=== PATIENT | female | born 1950 | race Caucasian/White ===

== ENCOUNTER 2020-06-10 14:42 | Emergency (ER) | payer MEDICARE ==
[~2020-06-10] VITALS: Ht 167.6 cm; Wt 90.7 kg
[2020-06-10] MEDS ORDERED: KETOROLAC TROMETHAMINE 30 MG/ML VIAL IV STA (15:08)
[2020-06-10] MEDS ORDERED: ONDANSETRON HCL INJ 2MG/ML 2ML 2 MG/ML VIAL IV STA (15:08)
--- NOTE | 2020-06-10 15:13 | Emergency Department Note ---
History of Present Illnes History of Present Illness Chief Complaint: Abdominal Complaints History of Present Illness This is a 69 year old female that was recently seen at outside hospital 2 days ago for gallbladder stones. Patient was given Tylenol 3 for pain and Zofran for nausea. Patient did have a potato with water for dinner and pain began today. Patient did have 2 episodes of emesis. . Historian: Patient, Family Member Arrival Mode: Car Onset (how long ago): day(s) (3) Location: RUQ Quality: pain, ache Radiation: Reports back Severity: moderate Duration (how long): day(s) Progression: worsening Context: Reports other (recently diagnosed with gall stones, had tator cassarole for dinner) Relieving factors: none Exacerbating factors: eating Associated symptoms: Reports loss of appetite, Reports nausea/vomiting; Denies cough Past Medical/Family History Physician Review I have reviewed the patient's past medical and family history. Any updates have been documented here. Past Medical History Recent Fever: No Clinical Suspicion of Infectio: No New/Unexplained Change in Ment: No Past Medical History: Hypertension, GERD, Hyperlipedemia, Osteoarthritis Past Surgical History: Knee Replacement Other Surgery: BREAST SURGERY LEFT KNEE REPLACEMENT Social History Physically hurt or threatened: No Review of Systems Review of Systems Constitutional: Reports no symptoms EENTM: Reports no symptoms Cardiovascular: Reports no symptoms Respiratory: Reports no symptoms Gastrointestinal: Reports as per HPI Genitourinary: Reports no symptoms Musculoskeletal: Reports no symptoms Integumentary: Reports no symptoms Neurological: Reports no symptoms Psychological: Reports no symptoms Endocrine: Reports no symptoms Hematological/Lymphatic: Reports no symptoms Physical Exam Related Data Allergies: Coded Allergies: No Known Allergies (Unverified , 06/10/20) Triage Vital Signs Vital Signs Date Time Temp Pulse Resp B/P (MAP) Pulse Ox O2 Delivery O2 Flow Rate FiO2 06/10/20 14:42 97.9 92 18 129/85 100 Room Air Physical Exam CONSTITUTIONAL Constitutional: Present well-developed, Present well-nourished HENT HENT: Present normocephalic, Present atraumatic, Present oropharynx clear/moist, Present nose normal HENT L/R: Present left ext ear normal, Present right ext ear normal EYES Eyes: Reports PERRL, Reports conjunctivae normal NECK Neck: Present ROM normal PULMONARY Pulmonary: Present effort normal, Present breath sounds normal CARDIOVASCULAR Cardiovascular: Present regular rhythm, Present heart sounds normal, Present capillary refill normal, Present normal rate GASTROINTESTINAL Abdominal: Present soft, Present bowel sounds normal, Present tender (TTP RUQ, no peritoneal signs ) GENITOURINARY Genitourinary: Present exam deferred SKIN Skin: Present warm, Present dry MUSCULOSKELETAL Musculoskeletal: Present ROM normal NEUROLOGICAL Neurological: Present alert, Present oriented x 3, Present no gross motor or sensory deficits PSYCHOLOGICAL Psychological: Present mood/affect normal, Present judgement normal Results Laboratory Laboratory Laboratory Tests Test 06/10/20 15:46 White Blood Count 7.44 x10e3/uL (4.8-10.8) Red Blood Count 3.70 x10e6/uL (3.6-5.1) Hemoglobin 12.7 g/dL (12.0-16.0) Hematocrit 37.8 % (34.2-44.1) Mean Corpuscular Volume 102.2 fL (81-99) Mean Corpuscular Hemoglobin 34.3 pg (28-32) Mean Corpuscular Hemoglobin Concent 33.6 g/dL (31-35) Red Cell Distribution Width 13.4 % (11.7-14.4) Platelet Count 334 x10e3/uL (140-360) Neutrophils (%) (Auto) 48.7 % (38.7-80.0) Lymphocytes (%) (Auto) 39.5 % (18.0-39.1) Monocytes (%) (Auto) 8.5 % (4.4-11.3) Eosinophils (%) (Auto) 2.7 % (0.0-6.0) Basophils (%) (Auto) 0.5 % (0.0-1.0) Neutrophils # (Auto) 3.6 (2.1-6.9) Lymphocytes # (Auto) 2.9 (1.0-3.2) Monocytes # (Auto) 0.6 (0.2-0.8) Eosinophils # (Auto) 0.2 (0.0-0.4) Basophils # (Auto) 0.0 (0.0-0.1) Absolute Immature Granulocyte (auto 0.01 x10e3/uL (0-0.1) Sodium Level 140 mmol/L (136-145) Potassium Level 3.9 mmol/L (3.5-5.1) Chloride Level 103 mmol/L (98-107) Carbon Dioxide Level 21 mmol/L (22-29) Anion Gap 19.9 mmol/L (8-16) Blood Urea Nitrogen 16 mg/dL (7-26) Creatinine 0.91 mg/dL (0.57-1.11) Estimat Glomerular Filtration Rate > 60 ML/MIN (60-) BUN/Creatinine Ratio 18 (6-25) Glucose Level 99 mg/dL (74-118) Calcium Level 9.6 mg/dL (8.4-10.2) Total Bilirubin 0.7 mg/dL (0.2-1.2) Aspartate Amino Transf (AST/SGOT) 20 IU/L (5-34) Alanine Aminotransferase (ALT/SGPT) 20 IU/L (0-55) Alkaline Phosphatase 77 IU/L (40-150) Total Protein 7.4 g/dL (6.5-8.1) Albumin 4.5 g/dL (3.5-5.0) Globulin 2.9 g/dL (2.3-3.5) Albumin/Globulin Ratio 1.6 (0.8-2.0) Lipase 9 U/L (8-78) Lab results reviewed: Yes Imaging Imaging results reviewed: Yes Assessment & Plan Medical Decision Making MDM Patient is known gallbladder stone issue, we'll make sure that it is not infected today. We'll get her pain under control. Patient was advised of diet that she needs to follow. The concern for ACS, no exertional component. No fever no concern for a ascending cholangitis. Patient otherwise looks well other than pain RUQ quadrant. Patient will need to follow-up with surgery. Patient on reassessment at 6 PM, pain completely under control, patient understands dietary restrictions, will follow up with surgery. No concern for cholecystitis at this time. No concern for obstruction given her normal lab work. Reassessment Reassessment EKG shows an interpreted by me as normal sinus rhythm, left axis deviation, normal intervals, no acute ST changes. No STEMI. Assessment & Plan Final Impression: (1) Cholelithiasis Depart Disposition: HOME, SELF-CARE Last Vital Signs Date Time Temp Pulse Resp B/P (MAP) Pulse Ox O2 Delivery O2 Flow Rate FiO2 06/10/20 14:42 97.9 92 18 129/85 100 Room Air CARMEL KULKARNI MD Jun 10, 2020 15:13
[2020-06-10] MEDS ORDERED: MORPHINE SULFATE 2 MG/ML SYR 1ML IV ONE (15:30)
[2020-06-10 16:19] LABS: BASOPHILS % 0.5 % (0.0-1.0); EOSINOPHILS # (AUTO) 0.2 (0.0-0.4); EOSINOPHILS % 2.7 % (0.0-6.0); HEMATOCRIT 37.8 % (34.2-44.1); HEMOGLOBIN 12.7 g/dL (12.0-16.0); LYMPHOCYTES # (AUTO) 2.9 (1.0-3.2); LYMPHOCYTES % 39.5 % (18.0-39.1); MEAN CORPUSCULAR HEMOGLOBIN 34.3 pg (28-32); MEAN CORPUSCULAR HGB CONC 33.6 g/dL (31-35); MEAN CORPUSCULAR VOLUME 102.2 fL (81-99); MONOCYTES # (AUTO) 0.6 (0.2-0.8); MONOCYTES % 8.5 % (4.4-11.3); NEUTROPHILS # (AUTO) 3.6 (2.1-6.9); NEUTROPHILS % 48.7 % (38.7-80.0); PLATELET COUNT 334 x10e3/uL (140-360); RED CELL DISTRIBUTION WIDTH 13.4 % (11.7-14.4)
[2020-06-10 16:39] LABS: ALANINE AMINOTRANSFERASE 20 IU/L (0-55); ALBUMIN 4.5 g/dL (3.5-5.0); ALBUMIN/GLOBULIN RATIO 1.6 (0.8-2.0); ALKALINE PHOSPHATASE 77 IU/L (40-150); ANION GAP 19.9 mmol/L (8-16); BLOOD UREA NITROGEN 16 mg/dL (7-26); BUN/CREATININE RATIO 18 (6-25); CALCIUM 9.6 mg/dL (8.4-10.2); CARBON DIOXIDE 21 mmol/L (22-29); CHLORIDE 103 mmol/L (98-107); CREATININE, SERUM 0.91 mg/dL (0.57-1.11); EST GLOMERULAR FILTRATION RATE > 60 ML/MIN (60-); GLUCOSE 99 mg/dL (74-118); POTASSIUM 3.9 mmol/L (3.5-5.1); SODIUM 140 mmol/L (136-145)
--- NOTE | 2020-06-10 17:50 | Diagnostic Imaging Report ---
EXAM: Right Upper Quadrant Ultrasound with Doppler INDICATION: Right upper quadrant abdominal pain COMPARISON: None. TECHNIQUE: Transverse and longitudinal images of the right upper abdomen were obtained. Grayscale, color Doppler and spectral waveform analysis of the hepatic vasculature and splenic vein were performed. FINDINGS: Liver: Size: 13 cm in the right midclavicular line, normal Appearance: Normal echogenicity, smooth contour Mass: No focal masses Gallbladder: Stones/Sludge: There are multiple stones in the gallbladder. Wall: 0.3 cm Appearance: No pericholecystic fluid or hydrops. Sonographic Cristina's Sign: Negative Bile Ducts: Intrahepatic Ducts: No dilatation Extrahepatic Ducts: Common bile duct measures 1.0 cm, no dilatation Pancreas: Visualized portions of the pancreatic head, neck and proximal body are normal. Right Kidney: Size: 10 x 4.1 x 5.3 cm Echogenicity: Normal Parenchymal thickness: Normal Collecting system: No hydronephrosis Stones: None Cyst/Mass: None Vessels: Main Portal Vein: Diameter: 0.9 cm, normal. Normal flow direction. Aorta: Visualized portions are normal Inferior Vena Cava: Visualized portions are normal Free Fluid: No ascites or pleural effusion IMPRESSION: 1. Cholelithiasis without sonographic evidence of acute cholecystitis. 2. The common bile duct is dilated, however, no evidence of choledocholithiasis sonographically. Recommend further evaluation of this finding with ERCP or MRCP. 3. LV hyper to kid LV hypo to spleen Bender hyper to LV Liver Male < 16 cm Female < 15 cm Kidneys: NL 9-12 cm, <13 cm Spleen < 12 cm CBD < 7 mm CHD < 4-5 mm GB Wall < 3 mm Hydrops > 10 x 5 cm PV < 13 mm Panc. duct 3-2-1 Signed by: Caleb Santiago MD on 06/10/2020 5:47 PM
[2020-06-14] MEDS ORDERED: MONTELUKAST SOD10 MG PO (09:45)
[2020-06-14] MEDS ORDERED: OMEPRAZOLE40 MG PO (09:46)
[2020-06-14] MEDS ORDERED: CYCLOBENZAPRINE10 MG PO (09:48)
[2020-06-14] MEDS ORDERED: FLUTICASONE P15.8 ML (09:48)
[2020-06-14] MEDS ORDERED: DIOVAN80 MG PO (09:48)
[2020-06-14] MEDS ORDERED: MELOXICAM7.5 MG PO (09:49)
[2020-06-14] MEDS ORDERED: ATORVASTATIN CA20 MG PO (09:49)
[2020-06-14] MEDS ORDERED: FAMOTIDINE20 MG PO (09:50)
[2020-06-14] MEDS ORDERED: DICYCLOMINE HCL20 MG PO (09:50)
[2020-06-14] MEDS ORDERED: ZOFRAN8 MG PO (09:52)
[2020-06-14] MEDS ORDERED: TYLENOL # 31 EA PO (09:54)
== END 2020-06-10 18:45 | disposition home or self-care (01) ==
LOC: ER 15:45
DX: R10.11 Right upper quadrant pain (principal); K80.20 Calculus of gallbladder without cholecystitis without obstruction; R11.2 Nausea with vomiting, unspecified; I11.0 Hypertensive heart disease with heart failure; E78.5 Hyperlipidemia, unspecified; K21.9 Gastro-esophageal reflux disease without esophagitis; Z96.652 Presence of left artificial knee joint
CPT/HCPCS: 36415; 76705; 80053; 83690; 85025; 93005; 99284; J1885; J2270; J2405

== ENCOUNTER → 2020-06-15 | Day surgery (SDC) | payer MEDICARE, OTHER ==
--- NOTE | 2020-06-14 10:45 | Diagnostic Imaging Report ---
EXAMINATION: CHEST 2 VIEWS INDICATION: Pre-operative COMPARISON: None FINDINGS: LINES/TUBES:None LUNGS:The lungs are well-inflated. No focal consolidation or pulmonary edema. PLEURA:No pleural effusion or pneumothorax. MEDIASTINUM:The cardiomediastinal silhouette appears normal in size and shape. BONES/SOFT TISSUES:No acute osseous injury. ABDOMEN:No free air under the diaphragm. IMPRESSION: No focal pneumonia or pulmonary edema. Signed by: Alex Feliz MD on 06/14/2020 10:42 AM
[~2020-06-15] MED LIST: ACETAMINOPHEN 1000 MG/100 ML 100 ML IV ONE; ACETAMINOPHEN/CODEINE 300MG - 30MG TAB ONE; ATORVASTATIN CA20 MG PO; BUPIVACAINE 0.5%/EPI 30 ML SDV INJ ONE; CEFOXITIN SOD 1 GM VIAL ONE; CYCLOBENZAPRINE10 MG PO; DEXAMETHASONE SOD PHOS INJ 4 MG/ML VIAL ONE; DICYCLOMINE HCL20 MG PO; DIOVAN80 MG PO; EPHEDRINE SULFATE INJ 50 MG/ML VIAL ONE; FAMOTIDINE20 MG PO; FENTANYL CITRATE/PF 100MCG/2 ML INJ ONE; FLUTICASONE P15.8 ML; GLYCOPYRROLATE INJ 0.2 MG/ML VIAL ONE; KETOROLAC TROMETHAMINE 30 MG/ML VIAL ONE; LIDOCAINE HCL 2% LOCAL INJ 5 ML SDV VIAL INJ ONE; MELOXICAM7.5 MG PO; METOCLOPRAMIDE HCL 10 MG/2ML VIAL ONE; MONTELUKAST SOD10 MG PO; NEOSTIGMINE 1 MG/ML 10ML VIAL ONE; OMEPRAZOLE40 MG PO; ONDANSETRON HCL INJ 2MG/ML 2ML 2 MG/ML VIAL ONE; PROPOFOL IV EMULSION 10 MG/ML 20 ML VIAL ONE; ROCURONIUM BROMIDE 10 MG/ML 5ML VIAL IV ONE; SEVOFLURANE INHAL SOLN 250 ML PEN BTL ONE; TYLENOL # 31 EA PO; ZOFRAN8 MG PO
[2020-06-15 12:15] VITALS: BP 130/78
--- NOTE | 2020-06-15 13:10 | Operative Report ---
DATE OF PROCEDURE: 06/15/2020 SURGEON: Stan Villalobos MD PREOPERATIVE DIAGNOSES: Right upper quadrant pain and cholecystitis secondary to gallstone. POSTOPERATIVE DIAGNOSES: Right upper quadrant pain and cholecystitis secondary to gallstone. PROCEDURE PERFORMED: Laparoscopic cholecystectomy. CHEF MANAGER: TORSTEN Roberts. ESTIMATED BLOOD LOSS: Minimal. DRAINS: None. COMPLICATIONS: None. INDICATION AND FINDINGS: This is a 69-year-old female, who was seen in the emergency room 3 times during the last 4 days, complaining of abdominal pain, right upper quadrant, nausea, inability to eat well. At that time, discharged home because there was no evidence of acute cholecystitis both on ultrasound and laboratory data. She was referred to us by [facility] Emergency Room. The patient's ultrasound had revealed gallstone. There was normal ductal anatomy. There was no evidence of cholecystitis or gallbladder wall thickening. Her liver chemistries and white count were normal. INTRAOPERATIVE FINDINGS: The patient had chronic cholecystitis with adhesions of the omentum in the right upper quadrant and to the gallbladder. After lysis of all those adhesions, we identified the gallbladder and the hepatoduodenal ligament, and we were able to complete the procedure laparoscopically after identification of the triangle of safety. There were multiple large stones. There was no ductal dilatation. DESCRIPTION OF PROCEDURE: With the patient lying on the operative table in the supine position and after administration of general anesthesia, she was prepped and draped for laparoscopic cholecystectomy. We attempted to create a pneumoperitoneum in the right upper quadrant, but we were not able to because of we did not perform the saline drop test satisfactorily and we were getting high pressure. At that point, we decided to proceed with a pneumoperitoneum insufflation in the umbilical site using again the saline drop test. The initial attempt was made in the right upper quadrant because she had a previous tubal ligation through a suprapubic incision. We established a pneumoperitoneum in the umbilical site without any difficulties after the saline drop test was performed and then placed a 10/11 trocar in that location. We went ahead and then under direct vision, placed a 10 mm subxiphoid port. The adhesions in the right upper quadrant were lysed allowing us to expose properly in the right upper quadrant. We placed then a 5 mm trocar in that location and after lysis of the adhesion, a right anterior axillary line trocar was finally placed. We then retracted the gallbladder cephalad using grasping forceps. There were adhesions to the omentum to the gallbladder and those were lysed. The gallbladder wall was thickened and she had several stones in the neck. All consistent with chronic cholecystitis mainly. After we did that, we began the dissection on the hepatoduodenal ligament until we exposed the cystic duct. We identified the cystic artery too as well as the common bile duct. There were inflammatory changes in the hepatoduodenal ligament, but we were able to establish the anatomy and visualize the triangle of safety mainly the cystic duct, cystic artery and a plate of the liver as well as the common duct at this point only. At this point, we clipped the cystic duct 3 times distally, once proximally and transected. The cystic artery was handled in the same manner and then we continued the dissection until we detached the gallbladder from the liver bed using electrocautery dissection. We then extracted the gallbladder through the umbilical port. Because of the large number of stones, we had to enlarge the incision in the umbilical port. After we did that, we reinspected the operative field. There was no bile leak, no bleeding, no apparent bowel injury when we released the pneumoperitoneum and closed the wound using 0 Vicryl x2 for the umbilical fascia, 3-0 Vicryl in that location as well as the subxiphoid port. The skin of all the port was closed using reginaldo. A 0.25% Marcaine with epinephrine was given as local block at the end of the case. The patient tolerated the procedure well. MD CHASITY Morris/MEI /[id number]
== END | disposition home or self-care (01) ==
LOC: OR 07:05
PROVIDERS: ATTEND Surgery
DX: K80.10 Calculus of gallbladder with chronic cholecystitis without obstruction (principal); K82.8 Other specified diseases of gallbladder; K21.9 Gastro-esophageal reflux disease without esophagitis; I10 Essential (primary) hypertension; Z01.812 Encounter for preprocedural laboratory examination; Z01.818 Encounter for other preprocedural examination; Z11.59 Encounter for screening for other viral diseases; Z68.31 Body mass index [BMI] 31.0-31.9, adult
CPT/HCPCS: 47562; 71046; 88304; C1766; J0131; J0694; J1100; J1885; J2001; J2405; J2704; J2710; J2765; J3010; U0002